=== PATIENT | male | born 1955 | race Native Hawaiian/Other Pacific Islander ===

== ENCOUNTER 2018-01-25 20:00 | Emergency (ER) | payer OTHER ==
[~2018-01-25] VITALS: Ht 167.6 cm; Wt 90.7 kg
[2018-01-25 20:11] LABS: PLATELET COUNT 238 K/uL (142-355)
[2018-01-25 20:19] LABS: POTASSIUM 3.5 mmol/L (3.6-5.2)
[2018-01-25 21:43] VITALS: BP 110/61; TEMP 98.1
[2018-01-25] MEDS ORDERED: ASPIRIN325 M1 PO (23:35)
[2018-01-25] MEDS ORDERED: LIPITOR20 MG PO (23:41)
[2018-01-25] MEDS ORDERED: DIVALPROEX500 M1 PO (23:44)
[2018-01-25] MEDS ORDERED: CELEXA20 MG PO (23:47)
[2018-01-25] MEDS ORDERED: FAMOTIDINE40 MG PO (23:49)
[2018-01-25] MEDS ORDERED: FIBER-LAX625 MG PO (23:51)
[2018-01-26] MEDS ORDERED: OMEGA 31000 MG PO ×2 (00:02→00:05)
[2018-01-26] MEDS ORDERED: HYDR25TA60 PO (00:08)
[2018-01-26] MEDS ORDERED: HYDR5TAB9 PO (00:11)
[2018-01-26] MEDS ORDERED: LISI5TAB10 PO (00:13)
[2018-01-26] MEDS ORDERED: LORA0.5T17 PO (00:16)
[2018-01-26] MEDS ORDERED: METF500T PO (00:21)
[2018-01-26] MEDS ORDERED: METO50TA27 PO (00:24)
[2018-01-26] MEDS ORDERED: POTASSIUM CHLO10 MEQ PO (00:38)
[2018-01-26] MEDS ORDERED: RISP1TAB PO (00:39)
[2018-01-26] MEDS ORDERED: TRAZ50TA36 PO (00:43)
[2018-01-26] MEDS ORDERED: MAGNSUS68 PO (01:04)
[2018-01-26] MEDS ORDERED: MYLANT3 PO (01:04)
[2018-01-26] MEDS ORDERED: TYLENOL325 MG OR ×2 (01:06→01:07)
[2018-01-26] MEDS ORDERED: LANOOIN26 TOP (01:11)
[2018-02-01] MEDS ORDERED: SOD CHLORIDE1 GM PO (10:13)
[2018-02-01] MEDS ORDERED: MAGN400T4 PO (10:13)
[2018-02-01] MEDS ORDERED: CLON0.5T36 PO (10:14)
[2018-02-01] MEDS ORDERED: CITA20TA2 PO (10:14)
== END 2018-01-25 21:43 | disposition other institution (70) ==
LOC: ED 20:00
DX: F20.89 Other schizophrenia (principal); E11.9 Type 2 diabetes mellitus without complications; I10 Essential (primary) hypertension; Z04.6 Encounter for general psychiatric examination, requested by authority
CPT/HCPCS: 36415; 80053; 81000; 85027; 93005; 99285

== ENCOUNTER 2019-07-25 18:42 | Emergency (ER) | payer OTHER ==
[~2019-07-25] VITALS: Ht 167.6 cm; Wt 88.5 kg
[~2019-07-25 18:42] MED LIST: ASPIRIN325 M1 PO; CELEXA20 MG PO; CHOL100034 PO; CITA20TA2 PO; CLON0.5T36 PO; DIVALPROEX500 M1 PO; FAMOTIDINE40 MG PO; FIBER-LAX625 MG PO; HYDR25TA60 PO; HYDR5TAB9 PO; LANOOIN26 TOP; LIPITOR20 MG PO; LISI5TAB10 PO; LORA0.5T17 PO; MAGN400T4 PO; MAGNSUS68 PO; METF500T PO; METO50TA27 PO; MYLANT3 PO; OMEGA 31000 MG PO; OXCARBAZEPIN300 MG PO; POTASSIUM CHLO10 MEQ PO; RISP1TAB PO; SOD CHLORIDE1 GM PO; TRAZ50TA36 PO; TYLENOL325 MG OR
[2019-07-25 18:45] VITALS: BP 124/55; TEMP 98.6
[2019-07-25 20:01] LABS: PLATELET COUNT 241 K/uL (142-355)
[2019-07-25 20:11] LABS: POTASSIUM 4.3 mmol/L (3.6-5.2)
== END 2019-07-25 20:16 | disposition other institution (70) ==
LOC: ED 18:42
PROVIDERS: Family Medicine
DX: R46.89 Other symptoms and signs involving appearance and behavior (principal); R45.1 Restlessness and agitation; Z04.6 Encounter for general psychiatric examination, requested by authority
CPT/HCPCS: 36415; 80053; 85027; 93005; 99285

== ENCOUNTER 2023-02-06 23:00 | Emergency (ER) | payer OTHER ==
[~2023-02-06] VITALS: Ht 172.7 cm; Wt 106.6 kg
[2023-02-06 23:00] VITALS: TEMP 97.7
[~2023-02-06 23:00] MED LIST changes: +ASPI325T40 PO; -ASPIRIN325 M1 PO; +ESCI10TA PO; +K-TAB20 MEQ PO; +LISI10TA11 PO; -LISI5TAB10 PO; -METF500T PO; +METFORMIN HYD1000 MG PO; -POTASSIUM CHLO10 MEQ PO
[2023-02-06 23:36] LABS: PLATELET COUNT 204 K/uL (142-355)
[2023-02-06 23:49] LABS: POTASSIUM 4.5 mmol/L (3.6-5.2)
[2023-02-07 01:30] VITALS: BP 134/71
[2023-02-07] MEDS ORDERED: DONEPEZIL HYDRO10 MG PO (07:50)
[2023-02-07] MEDS ORDERED: VITAMIN B COMPL1 TAB PO (07:52)
[2023-02-07] MEDS ORDERED: FAMO20TA4 PO (07:54)
[2023-02-07] MEDS ORDERED: FERROUS SULF325 M1 PO (07:55)
[2023-02-07] MEDS ORDERED: MEMA10TA2 PO (08:02)
[2023-02-07] MEDS ORDERED: REFRESH RELIEVA OPTH (08:04)
[2023-02-07] MEDS ORDERED: RISP1TAB PO (08:07)
[2023-02-07] MEDS ORDERED: RISP2TAB2 PO (08:08)
[2023-02-07] MEDS ORDERED: VITAMIN D31000 UNI4 PO (08:09)
== END 2023-02-07 01:30 | disposition other institution (70) ==
LOC: ED 23:00
PROVIDERS: Family Medicine
DX: R45.1 Restlessness and agitation (principal); R45.6 Violent behavior; R41.82 Altered mental status, unspecified
CPT/HCPCS: 80053; 85027; 87635; 93005; 99283; U0003